=== PATIENT | male | born 1955 | race Caucasian/White ===

== ENCOUNTER 2018-09-01 10:26 | Day surgery (SDC) | payer OTHER ==
[~2018-09-01 10:26] MED LIST: CIPROFLOXACIN 400MG/D5W 200 ML IVPB
[2018-09-01] MEDS ORDERED: FENTAnyl 50 MCG/ML VIAL (12:02)
[2018-09-01] MEDS ORDERED: MIDAZOLAM 1 MG/ML 2 ML INJ (12:02)
[2018-09-01] MEDS ORDERED: METOCLOPRAMIDE 10 MG INJ (12:03)
[2018-09-01] MEDS ORDERED: ONDANSETRON 4 MG INJ (12:03)
[2018-09-01] MEDS ORDERED: LIDOCAINE 2% (SDV) 5 ML INJ (12:03)
[2018-09-01] MEDS ORDERED: PROPOFOL 20 ML (12:03)
[2018-09-01] MEDS ORDERED: CEFAZOLIN 1 GM INJ (12:03)
[2018-09-01] MEDS ORDERED: hydrALAzine 20 MG INJ IV (13:00)
[2018-09-01] MEDS ORDERED: LEVALBUTEROL (NEB) 1.25 MG/0.5 ML AMP HHN (13:00)
[2018-09-01] MEDS ORDERED: HYDROmorphONE 1 MG/5 ML IV SYRINGE IV (13:00)
[2018-09-01] MEDS ORDERED: ONDANSETRON 4 MG INJ IV (13:00)
[2018-09-01] MEDS ORDERED: LABETALOL HCL 20MG INJ IV (13:00)
[2018-09-01] MEDS ORDERED: MEPERIDINE 25 MG INJ IV (13:00)
[2018-09-01] MEDS ORDERED: IPRATROPIUM (NEB) 0.5 MG/2.5 ML AMP HHN (13:00)
[2018-09-01] MEDS ORDERED: FENTAnyl 50 MCG/ML VIAL IV ×2 (13:00)
[2018-09-01] MEDS ORDERED: DIPHENHYDRAMINE 50 MG INJ IV (13:00)
[2018-09-01] MEDS ORDERED: KETOROLAC 30 MG INJ IV (13:00)
[2018-09-01] MEDS ORDERED: SUCCINYLCHOLINE CHLORIDE 100 MG/5 ML SYG IV (13:09)
[2018-09-01] MEDS: HYDROmorphONE 1 MG/5 ML IV SYRINGE IV (14:34)
== END 2018-09-01 15:48 | disposition home or self-care (01) ==
LOC: SDS 10:26
DX: N21.0 Calculus in bladder (principal); E11.9 Type 2 diabetes mellitus without complications; I10 Essential (primary) hypertension; N40.0 Benign prostatic hyperplasia without lower urinary tract symptoms; N52.9 Male erectile dysfunction, unspecified; N28.1 Cyst of kidney, acquired; N35.919 Unspecified urethral stricture, male, unspecified site; E66.9 Obesity, unspecified; Z68.35 Body mass index [BMI] 35.0-35.9, adult; Z79.84 Long term (current) use of oral hypoglycemic drugs; Z79.4 Long term (current) use of insulin
CPT/HCPCS: 52318; 82962; 88300

== ENCOUNTER 2018-12-01 05:28 | Day surgery (SDC) | payer OTHER ==
[2018-12-01] MEDS: VANCOMYCIN 1 GM 250 ML IVPB (06:26)
[2018-12-01] MEDS ORDERED: LIDOCAINE 4% (MPF) 5 ML INJ (07:09)
[2018-12-01] MEDS ORDERED: PROPOFOL 20 ML (07:13)
[2018-12-01] MEDS ORDERED: ROCURONIUM 50 MG INJ (07:13)
[2018-12-01] MEDS ORDERED: SUCCINYLCHOLINE CHLORIDE 100 MG/5 ML SYG IV (07:13)
[2018-12-01] MEDS ORDERED: LIDOCAINE 2% (SDV) 5 ML INJ (07:13)
[2018-12-01] MEDS ORDERED: FENTAnyl 50 MCG/ML VIAL (07:13)
[2018-12-01] MEDS ORDERED: LABETALOL HCL 20MG INJ IV (08:00)
[2018-12-01] MEDS ORDERED: HYDROmorphONE 1 MG/5 ML IV SYRINGE IV ×3 (08:00)
[2018-12-01] MEDS ORDERED: hydrALAzine 20 MG INJ IV (08:00)
[2018-12-01] MEDS ORDERED: OXYCODONE/ACETAMINOPHEN (5/325) TAB PO ×2 (08:00)
[2018-12-01] MEDS ORDERED: MEPERIDINE 25 MG INJ IV (08:00)
[2018-12-01] MEDS ORDERED: ONDANSETRON 4 MG INJ IV (08:00)
[2018-12-01] MEDS ORDERED: METOCLOPRAMIDE 10 MG INJ (08:19)
[2018-12-01] MEDS ORDERED: ONDANSETRON 4 MG INJ (08:19)
[2018-12-01] MEDS ORDERED: FAMOTIDINE 20 MG INJ (08:19)
[2018-12-01] MEDS ORDERED: SUGAMMADEX SODIUM 200 MG/2 ML VIAL IV (08:51)
[2018-12-01] MEDS ORDERED: KETOROLAC 30 MG INJ (09:14)
[2018-12-01] MEDS: BUPIVACAINE 0.25% (MPF) 30 ML INJ (09:15)
== END 2018-12-01 11:18 | disposition home or self-care (01) ==
LOC: SDS 05:28
DX: N21.0 Calculus in bladder (principal); I10 Essential (primary) hypertension; E11.9 Type 2 diabetes mellitus without complications; E78.5 Hyperlipidemia, unspecified; G47.33 Obstructive sleep apnea (adult) (pediatric); E66.9 Obesity, unspecified; Z68.34 Body mass index [BMI] 34.0-34.9, adult
CPT/HCPCS: 51050; 82962; 88304